=== PATIENT | male | born 1950 | race Caucasian/White ===

== ENCOUNTER → 2017-04-20 | Outpatient (CLI) | payer OTHER, MEDICARE ==
[~2017-04-20] MED LIST: ASPI-435 PO; COEN30CA3 PO; DOXY20TA3 PO; GADAVIST IV PRN; LMS250 PO; METO25TA56 PO; METR0.754 TOP; MULT-506 PO; PANT40TA PO
--- NOTE | 2017-04-20 21:05 | DIAGNOSTIC IMAGING REPORT ---
MRI OF THE BRAIN COMBO CLINICAL HISTORY: Visual changes. COMPARISON STUDY: CT of the brain dated 10/25/2010. TECHNIQUE: MRI of the brain was performed utilizing various T1 and T2-weighted sequences in the axial, sagittal, and coronal planes. Contrast-enhanced sequences were acquired following the administration of 11 cc of Gadavist. FINDINGS: Brain parenchyma: There are age-related involutional changes noting minimal patchy subcortical and periventricular microangiopathic disease. There is no hemorrhage or mass effect. There is no restricted diffusion to suggest acute ischemia. No enhancing mass lesion is identified on the postcontrast images. Montoya-white matter differentiation is preserved. No extra-axial fluid collection is seen. The cerebellar tonsils are normal in configuration. Ventricles, sulci, and cisterns: Prominent secondary to involutional change. Pituitary and sella: Unremarkable. Intracranial vasculature: Normal flow voids are maintained at the skull base. Orbits: The bony orbits are grossly intact. Orbital contents are normal in appearance. Sinuses and mastoids: Clear. Calvarium: Unremarkable. Cervical cord: Partially visualized cervical spinal cord is normal in morphology and signal intensity. IMPRESSION: No acute intracranial abnormality. Electronically signed by: José Antnoio Swan M.D. 04/20/2017 9:03 PM Dictated Date/Time: 04/20/2017 9:01 PM
== END | disposition home or self-care (01) ==
LOC: C.MRI 19:44
PROVIDERS: ATTEND Internal Medicine
DX: H53.9 Unspecified visual disturbance (principal)

== ENCOUNTER 2017-05-15 14:50 | Emergency (ER) | payer OTHER, MEDICARE ==
[~2017-05-15] VITALS: Ht 185.4 cm; Wt 116.0 kg
[~2017-05-15 14:50] MED LIST changes: +FLNIN/ NAE; -GADAVIST IV PRN; -LMS250 PO; -METO25TA56 PO; -METR0.754 TOP; +ZOLP5TAB6 PO
[2017-05-15 14:53] VITALS: TEMP 36.8
[2017-05-15] MEDS ORDERED: SODIUM CHLORIDE 0.9% 1000ML 1,000 ML IV STA (15:02)
[2017-05-15 15:15] VITALS: Ht 185.4 cm; Wt 116.0 kg
[2017-05-15] MEDS ORDERED: DILTIAZEM HCL 5 MG/ML 5 ML VIAL IV STA (15:18)
[2017-05-15] MEDS ORDERED: PRD150 PO (15:25)
[2017-05-15] MEDS ORDERED: DILT30TA PO ×2 (15:25→16:56)
[2017-05-15 15:51] LABS: BASO % 0.3 %; BASO ABS # 0.02 K/uL (0-0.2); COMPLETE YES; EOS % 0.7 %; HEMATOCRIT 41.2 % (42-52); IG% 0.1 %; LYMPH % 18.2 %; LYMPH ABS # 1.28 K/uL (1.2-3.4); MEAN CELL VOLUME 86.4 fL (80-100); MEAN CORPUSCULAR HEMOGLOBIN 29.6 pg (25-34); MEAN CORPUSCULAR HGB CONC 34.2 g/dl (32-36); MEAN PLATELET VOLUME 8.7 fL (7.4-10.4); MONO % 7.7 %; PLATELET COUNT 289 K/uL (130-400); RED BLOOD COUNT 4.77 M/uL (4.7-6.1); WHITE BLOOD COUNT 7.05 K/uL (4.8-10.8)
[2017-05-15 16:04] LABS: INR 1.1 (0.9-1.1); PARTIAL THROMBOPLASTIN RATIO 1.5; PROTHROMBIN TIME (PATIENT) 12.2 SECONDS (9.0-12.0)
[2017-05-15 16:11] LABS: BLOOD UREA NITROGEN 15 mg/dl (7-18); BUN/CREATININE RATIO 14.1 (10-20); CALCIUM 8.6 mg/dl (8.5-10.1); CARBON DIOXIDE 27 mmol/L (21-32); CHLORIDE 105 mmol/L (98-107); GLUCOSE 120 mg/dl (70-99); MAGNESIUM 2.4 mg/dl (1.8-2.4); POTASSIUM 4.4 mmol/L (3.5-5.1); SODIUM 137 mmol/L (136-145)
[2017-05-15 16:22] LABS: ALKALINE PHOSPHATASE 68 U/L (45-117); ALT/SGPT 24 U/L (12-78); AST/SGOT 16 U/L (15-37); CKMB/CK RATIO 1.8 (0-3.0)
--- NOTE | 2017-05-15 16:27 | DIAGNOSTIC IMAGING REPORT ---
CHEST ONE VIEW PORTABLE CLINICAL HISTORY: Weakness. COMPARISON STUDY: Chest radiograph May 01, 2017. FINDINGS: Lung volumes are normal. No pneumothorax or pleural effusion is present. There is no consolidation to suggest pneumonia. Mild cardiomegaly is unchanged. There is no evidence of pulmonary edema. IMPRESSION: No acute cardiopulmonary findings. Electronically signed by: Heron Francisco M.D. 05/15/2017 4:26 PM Dictated Date/Time: 05/15/2017 4:25 PM
[2017-05-15 17:10] VITALS: BP 125/87; PULSE 90; O2SAT 98
--- NOTE | 2017-05-15 17:55 | EMERGENCY ROOM VISIT NOTE ---
History Report prepared by Marlys: Berto Ron Under the Supervision of: Dr. Tashi Abebe M.D. First contact with patient: 15:01 Chief Complaint: CARDIAC ASSESSMENT Stated Complaint: AFIB History of Present Illness The patient is a 66 year old male who presents to the Emergency Room with complaints of an episode of atrial fibrillation that began "some time this morning." He has a history of atrial fibrillation and recently followed up with Dr. Benitez. He was placed onto a low dose of Diltiazem tid PO and Pradaxa. He has continued his Metoprolol and has not missed any dosages. This morning, he felt normal and ate his breakfast. He then took a nap, but he awoke feeling very fatigued. He also describes a sensation of "a three-legged elephant jumping around in his chest." He denies any pressure or pain, but noticed some irregularity. Pt denies LOC, headache, fevers, chills, diaphoresis, visual changes, neck pain, chest pain, breathing difficulties, nausea, vomiting, abdominal pain, back pain, melena, hematochezia, urinary symptoms, numbness, weakness, lymphadenopathy, rash, or other complaints. Source of History: patient Onset: this morning Position: other (Cardiac) Symptom Intensity: moderate Quality: other (Atrial fibrillation) Timing: constant Associated Symptoms: + fatigue Review of Systems See HPI for pertinent positives and negatives. A total of ten systems were reviewed and were otherwise negative. Past Medical & Surgical Medical Problems: (1) Atrial fibrillation (2) Atrial fibrillation with rapid ventricular response (3) Left against medical advice Family History Patient reports no known family medical history. Social History Smoking Status: Never Smoker Marital Status: single Occupation Status: employed Current/Historical Medications Scheduled Coenzyme Q10 (Ubidecarenone) (Co Q10), 1 CAP PO ON HOLD Dabigatran Elexilate (Pradaxa), 150 MG PO BID Diltiazem Hcl (Cardizem), 30 MG PO TID Diltiazem Hcl (Cardizem), 60 MG PO TID Doxycycline Hyclate (Doxycycline Hyclate), 20 MG PO DAILY Metoprolol Succinate (Metoprolol Succinate ER), 50 TAB PO BID Multivitamin (Multivitamin), 1 TAB PO DAILY Zolpidem Tartrate (Zolpidem Tartrate), 1 TAB PO HS Scheduled PRN Fluticasone Propionate (Fluticasone Propionate), 2 SPRAYS LLOYD UD PRN for Nasal Congestion Pantoprazole (Protonix), 40 MG PO DAILY PRN for Dyspepsia Allergies Coded Allergies: Codeine (Unverified Allergy, Unknown, CHEST PAIN, SOB,, 05/01/17) Morphine (Verified Allergy, Unknown, UNKNOWN, 05/15/17) Physical Exam Vital Signs Date Time Temp Pulse Resp B/P (MAP) Pulse Ox O2 Delivery O2 Flow Rate FiO2 05/15/17 17:10 90 18 125/87 98 05/15/17 15:34 103 21 132/93 98 Room Air 05/15/17 15:12 122 05/15/17 15:00 98 Room Air 05/15/17 14:53 36.8 96 20 124/87 94 Room Air Physical Exam GENERAL: Awake, alert, well-appearing, in no acute distress HENT: Normocephalic, atraumatic. Oropharynx unremarkable. EYES: Normal conjunctiva. Sclera non-icteric. NECK: Supple. No nuchal rigidity. FROM. No JVD. RESPIRATORY: Clear to auscultation. CARDIAC: Tachycardic irregular rate, irregular rhythm. Extremities warm and well perfused. Pulses equal. ABDOMEN: Soft, non-distended. No tenderness to palpation. No rebound or guarding. No masses. RECTAL: Deferred. MUSCULOSKELETAL: Chest examination reveals no tenderness. The back is symmetrical on inspection without obvious abnormality. There is no CVA tenderness to palpation. No joint edema. LOWER EXTREMITIES: Calves are equal size bilaterally and non-tender. No edema. No discoloration. NEURO: Normal sensorium. No sensory or motor deficits noted. SKIN: No rash or jaundice noted. Medical Decision & Procedures ER Provider Diagnostic Interpretation: Radiology results as stated below per my review and radiologist interpretation: CHEST ONE VIEW PORTABLE CLINICAL HISTORY: Weakness. COMPARISON STUDY: Chest radiograph May 01, 2017. FINDINGS: Lung volumes are normal. No pneumothorax or pleural effusion is present. There is no consolidation to suggest pneumonia. Mild cardiomegaly is unchanged. There is no evidence of pulmonary edema. IMPRESSION: No acute cardiopulmonary findings. Electronically signed by: Heron Francisco M.D. 05/15/2017 4:26 PM Dictated Date/Time: 05/15/2017 4:25 PM Laboratory Results 05/15/17 15:30 Red Blood Count 4.77, Mean Corpuscular Volume 86.4, Mean Corpuscular Hemoglobin 29.6, Mean Corpuscular Hemoglobin Concent 34.2, Mean Platelet Volume 8.7, Neutrophils (%) (Auto) 73.0, Lymphocytes (%) (Auto) 18.2, Monocytes (%) (Auto) 7.7, Eosinophils (%) (Auto) 0.7, Basophils (%) (Auto) 0.3, Neutrophils # (Auto) 5.15, Lymphocytes # (Auto) 1.28, Monocytes # (Auto) 0.54, Eosinophils # (Auto) 0.05, Basophils # (Auto) 0.02 05/15/17 15:30 Test 05/15/17 15:30 White Blood Count 7.05 K/uL (4.8-10.8) Red Blood Count 4.77 M/uL (4.7-6.1) Hemoglobin 14.1 g/dL (14.0-18.0) Hematocrit 41.2 % (42-52) Mean Corpuscular Volume 86.4 fL (80-100) Mean Corpuscular Hemoglobin 29.6 pg (25-34) Mean Corpuscular Hemoglobin Concent 34.2 g/dl (32-36) Platelet Count 289 K/uL (130-400) Mean Platelet Volume 8.7 fL (7.4-10.4) Neutrophils (%) (Auto) 73.0 % Lymphocytes (%) (Auto) 18.2 % Monocytes (%) (Auto) 7.7 % Eosinophils (%) (Auto) 0.7 % Basophils (%) (Auto) 0.3 % Neutrophils # (Auto) 5.15 K/uL (1.4-6.5) Lymphocytes # (Auto) 1.28 K/uL (1.2-3.4) Monocytes # (Auto) 0.54 K/uL (0.11-0.59) Eosinophils # (Auto) 0.05 K/uL (0-0.5) Basophils # (Auto) 0.02 K/uL (0-0.2) RDW Standard Deviation 41.5 fL (36.4-46.3) RDW Coefficient of Variation 13.0 % (11.5-14.5) Immature Granulocyte % (Auto) 0.1 % Immature Granulocyte # (Auto) 0.01 K/uL (0.00-0.02) Prothrombin Time 12.2 SECONDS (9.0-12.0) Prothromb Time International Ratio 1.1 (0.9-1.1) Activated Partial Thromboplast Time 39.1 SECONDS (21.0-31.0) Partial Thromboplastin Ratio 1.5 Anion Gap 5.0 mmol/L (3-11) Est Creatinine Clear Calc Drug Dose 85.8 ml/min Estimated GFR () 79.5 Estimated GFR (Non- 68.6 BUN/Creatinine Ratio 14.1 (10-20) Calcium Level 8.6 mg/dl (8.5-10.1) Magnesium Level 2.4 mg/dl (1.8-2.4) Total Bilirubin 0.3 mg/dl (0.2-1) Direct Bilirubin < 0.1 mg/dl (0-0.2) Aspartate Amino Transf (AST/SGOT) 16 U/L (15-37) Alanine Aminotransferase (ALT/SGPT) 24 U/L (12-78) Alkaline Phosphatase 68 U/L (45-117) Total Creatine Kinase 73 U/L (39-308) Creatine Kinase MB 1.3 ng/ml (0.5-3.6) Creatine Kinase MB Ratio 1.8 (0-3.0) Troponin I < 0.015 ng/ml (0-0.045) Total Protein 6.8 gm/dl (6.4-8.2) Albumin 3.2 gm/dl (3.4-5.0) Thyroid Stimulating Hormone (TSH) 2.250 uIu/ml (0.300-4.500) Laboratory results reviewed by me Medications Administered Medications (Trade) Dose Ordered Sig/Jasbir Route Start Time Stop Time Status Last Admin Dose Admin Sodium Chloride 1,000 ml @ 125 mls/hr Q8H STAT IV 05/15/17 15:02 05/15/17 23:01 05/15/17 15:32 125 MLS/HR Diltiazem HCl (Cardizem Inj) 10 mg NOW STAT IV 05/15/17 15:18 05/15/17 15:19 DC 05/15/17 15:30 10 MG ECG Indication: palpitations Rate (beats per minute): 98 Rhythm: atrial fibrillation Findings: nonspecific-ST abn, no acute ischemic change, no ectopy ED Course 1501: The patient was evaluated in room A12A. A complete history and physical exam was performed. 1502: Ordered Sodium Chloride 1000 ml @ 125 mls/hr IV 1518: Ordered Cardizem Inj 10 mg IV 1600: I spoke with Dr. Newby of Cardiology at this time. He will come evaluate the patient in the ER. 1640: Dr. Newby recommended increasing his Cardizem to 60 mg PO TID and to follow up in his office in the near future. He is comfortable with the patient being discharged. 1700: I reevaluated the patient. Discussed results and discharge instructions: He verbalized understanding and agreement. The patient is ready for discharge. Medical Decision Triage Nursing notes reviewed. The patient's presentation and history were concerning for recurrent A. fib. Etiologies such as cardiac dysrhythmia, ectopy,electrolyte abnormality, thyroid dysfunction, pulmonary embolism, infection, gastrointestinal, as well as others were entertained. The patient was evaluated. He was found to be in a rapid A. fib. He was doing relatively well. He describes palpitations but did not have any chest pain or pressure. He is on pradaxa. This is happened to him before. He has taken all of his prescribed medications. Blood work was unremarkable. The patient was given 15 mg of IV Cardizem and had rate control achieved. He felt better once his heart rate dropped below 100. Consultation was placed with Dr. Newby cardiology. He evaluated the patient in the Emergency Room. He discussed treatment options with him. The patient desires to be discharged home and he will have his Cardizem increased to 60 mg 3 times daily. He will follow-up in the office. If he worsens in any way he will be back. The patient feels comfortable with this plan. I gave my usual and customary discussion regarding this issue. By the evaluation outlined above other emergent etiologies such as those listed in the differential, as well as others, were deemed relatively unlikely. The patient was educated about the findings as listed above. All questions were answered and the patient was pleased with the treatment. Return instructions were outlined and the patient was discharged in stable condition. The patient was referred to [facility] cardiology next week for follow-up for a recheck of the current condition. Medication Reconcilliation Current Medication List: was personally reviewed by me Blood Pressure Screening Patient's blood pressure: Normal blood pressure Blood pressure disposition: Did not require urgent referral Consults Time Called: 1555 Consulting Physician: Dr. Newby - Cardiology Returned Call: 1600 We discussed the patient's case. He will come evaluate the patient in the ER. Additional Consults: Time Called: 1635 Consulted Physician: Dr. Newby - Cardiology Returned Call: 1640 Additional Comments: He recommended increasing his Cardizem to 60 mg PO TID and to follow up in his office in the near future. He is comfortable with the patient being discharged. Impression Primary Impression: Atrial fibrillation with rapid ventricular response Scribe Attestation The scribe's documentation has been prepared under my direction and personally reviewed by me in its entirety. I confirm that the note above accurately reflects all work, treatment, procedures, and medical decision making performed by me. Departure Information Dispostion Home / Self-Care Prescriptions Diltiazem Hcl (CARDIZEM) 30 Mg Tab 60 MG PO TID, #120 TAB Prov: Tashi Abebe MD 05/15/17 Referrals Khoi Benitez D.O. (PCP) Abraham Malik MD Forms IMPORTANT VISIT INFORMATION Patient Instructions My [facility] Additional Instructions Increase Cardizem to 60 mg 3 times a day. Take 2 to 30 milligrams tablets 3 times a day. Rest and drink plenty of fluids as tolerated. Continue current medications. Resume normal activities once your symptoms resolve. Eat a heart healthy, low fat, low cholesterol diet. Return to the ER immediately for passing out, chest pain, abdominal pain, vomiting, fevers, difficulty breathing, worsening of your condition, or as needed. Follow up with your Quality Control Head next week for a recheck of your current condition.
[2017-05-15] MEDS ORDERED: TPRSR/100 PO (18:28)
--- NOTE | 2017-05-15 19:54 | CARDIOLOGY CONSULTATION ---
DATE OF CONSULTATION: 05/15/2017 CONSULTATION REQUESTED BY: Tashi Abebe MD REASON FOR CONSULTATION: Atrial fibrillation with rapid ventricular response. HISTORY OF PRESENT ILLNESS: Mr. Juarez is a 66-year-old gentleman, who normally follows with Dr. Benitez of our cardiology practice very closely for his history of paroxysmal atrial fibrillation. He presented to [facility] Emergency Department on 05/15/2017 after waking up this morning feeling he is back in atrial fibrillation. He states that when he woke up this morning, he was just very tired and went back to bed. After sleeping several more hours, he awoke and felt his heart racing in his chest. At that time, he came into the Emergency Department. Upon arrival, he was found to be back in atrial fibrillation with rates in the 130s. He was given IV Cardizem with improvement of the rates into the 80s and 90s. With the reduction of his rate, his symptoms resolved and states now he is feeling well. Of note, the patient states he has been compliant with all of his medications and he has not missed any doses, particularly his Pradaxa. He was actually recently found to go back into normal rhythm, but EKG was not performed to confirm this and was based on the patient finding that his pulse seemed to be irregular and slower. PAST SURGICAL HISTORY: 1. Cholecystectomy. 2. Left pulma resection. MEDICAL ILLNESSES: 1. Paroxysmal atrial fibrillation, on Pradaxa anticoagulation since 05/05/2017. 2. Dyslipidemia. FAMILY HISTORY: Noncontributory. SOCIAL HISTORY: He denies any alcohol, tobacco or recreational drug use. He is not . He is self-employed, in the real estate. REVIEW OF SYSTEMS: As per HPI. All other review of systems reviewed and negative at this time. ALLERGIES: TO MORPHINE. MEDICATIONS AN OUTPATIENT: 1. Pradaxa 150 mg b.i.d. 2. Toprol-XL 100 mg daily. 3. Cardizem 30 mg three times a day. PHYSICAL EXAMINATION: VITALS: Temperature 36.8, pulse 84, respiratory rate 12, blood pressure 132/93 and saturating 98% on room air. GENERAL: Awake, alert, oriented x3 and in no acute distress. HEENT: Normocephalic and atraumatic. Pupils are equal, round and reactive to light and accommodation. Extraocular muscles are intact. Anicteric sclerae. Moist mucous membranes. NECK: No JVD or bruit. CARDIOVASCULAR: Irregularly irregular, but controlled. No murmurs or rubs. PULMONARY: Clear to auscultation bilaterally. No rales, rhonchi or wheezing. ABDOMEN: Bowel sounds x4, soft. No rebound, guarding or tenderness. No organomegaly. EXTREMITIES: No clubbing, cyanosis or edema. Has +2 pedal pulses bilaterally. SKIN: Warm and dry. TEST RESULTS: A 12-lead EKG performed in the Emergency Department independently reviewed at this time shows atrial fibrillation at 98 beats per minute. Telemetry monitoring also shows atrial fibrillation. LABORATORY STUDIES OF SIGNIFICANCE: Sodium 137, potassium 4.4, BUN 15, creatinine 1.1 and magnesium of 2.4. IMPRESSION: Paroxysmal atrial fibrillation, now back with rapid ventricular response. RECOMMENDATIONS: Mr. Juarez was counseled on the options we have at this point for further treatment of his atrial fibrillation. Given the fact he is fully anticoagulated on Pradaxa and tolerating it well, we could continue with further rate control strategy for now or instead go for rhythm control strategy which has been previously discussed with Dr. Benitez. He was counseled that rhythm control strategy would entail admitting him to the hospital, starting him on a sotalol load and undergoing ABBY-guided cardioversion. However, the patient states he preferred to be discharged today, so we will increase his Cardizem to 60 mg three times a day. We will continue his Toprol-XL 100 mg daily and he will follow up with Dr. Benitez as is already scheduled tentatively for a cardioversion on 05/28/2017. The patient was counseled that should his rates increase and start to become symptomatic, he should return to [facility] Emergency Department. He was also instructed on the need for avoidance of caffeine or alcohol in high quantities. This was discussed with the ER physician and he will provide a prescription for Mr. Juarez to go home for the Cardizem.
== END 2017-05-15 17:11 | disposition home or self-care (01) ==
LOC: C.EDB 14:51 → C.EDA 17:11
DX: I48.0 Paroxysmal atrial fibrillation (principal); Z90.2 Acquired absence of lung [part of]; Z90.49 Acquired absence of other specified parts of digestive tract